=== PATIENT | female | born 1980 | race Caucasian/White ===

== ENCOUNTER → 2018-06-08 | Day surgery (SDC) | payer OTHER ==
[~2018-06-08] MED LIST: DEXAMETHASONE SOD PHOS INJ 4 MG/ML VIAL ONE; DIAZEPAM5 MG PO; FENTANYL CITRATE/PF 100MCG/2 ML INJ ONE; FLUOXETINE HCL40 MG PO; IBUPROFEN200 MG PO; IOPAMIDOL 610MG/1ML 300 MG/ML VIAL IV ONE; KETOROLAC TROMETHAMINE 30 MG/ML VIAL ONE; LEVAQUIN500 MG PO; LEVOFLOXACIN 500MG/D5W 100ML 100 ML IV ONE; LIDOCAINE HCL 2% LOCAL INJ 5 ML SDV VIAL INJ ONE; MIDAZOLAM HCL 2 MG/2 ML VIAL ONE; MORPHINE SULFATE INJ 4 MG/ML INJ 1ML ONE; ONDANSETRON HCL INJ 2MG/ML 2ML 2 MG/ML VIAL ONE; PROPOFOL IV EMULSION 10 MG/ML 20 ML VIAL ONE; PYRIDIUM200 MG PO; SEVOFLURANE INHAL SOLN 250 ML PEN BTL ONE; TYLENOL WITH C1 EACH PO
[2018-06-08 12:45] VITALS: BP 122/73
--- NOTE | 2018-06-08 13:17 | Operative Report ---
DATE OF PROCEDURE: 06/08/2018 SURGEON: Mike Mooney MD PREOPERATIVE DIAGNOSES: 1. Recurrent urinary tract infections. 2. Chronic cystitis. 3. Overactive bladder with urge incontinence. 4. Stress incontinence. POSTOPERATIVE DIAGNOSES: 1. Recurrent urinary tract infections. 2. Chronic cystitis. 3. Overactive bladder with urge incontinence. 4. Stress incontinence. OPERATIONS: Cystourethroscopy and bilateral retrograde pyelogram. SHEET SORTER: SHARI Guzman. ANESTHETIC: General. DESCRIPTION OF PROCEDURE: Ms. Clifton is a 38-year-old female, who presented with a chief complaint of recurrent urinary tract infections and hematuria. She also tells me that she has a history of recurrent kidney stones. She also complained of urgency with urge incontinence and stress incontinence. Physical exam showed cystocele with stress incontinence. CT scan was performed and did not show any evidence of stones, masses, or any abnormal lesions. This patient was placed on the table in the lithotomy position and was prepped and draped in a sterile manner after satisfactory anesthesia. A #23-Divehi cystoscope was used and cystourethroscopy was performed and the urethra was normal. Cystoscopy was then performed using both the right angle and the foroblique lens, and it was noted that the trigone showed marked trigonitis with cobblestone appearance. The bladder neck showed inflammatory bladder neck polyps. The remainder part of the bladder was normal. There was no evidence of stones or masses or lesions or any papillary lesions. Right retrograde pyelogram was then performed using #8 ball-tip. Ureteral catheter inserted at the right ureteral orifice. A 5 mL of contrast material was injected. A retrograde performed was normal. Left retrograde pyelogram was performed similarly and was normal. The bladder was drained. Cystoscope removed and patient taken to the recovery room in satisfactory condition. Plans for this lady are to be placed on Cipro 250 mg one twice a day for two weeks, then one every night for six weeks. Ditropan 5 mg tablet one twice a day. Ultracet tablet one every 6 to 8 hours p.r.n. and was given 20. She is to return to the office in about 2 to 3 weeks when at that time, plans will be made for a mid urethral sling. Mike Mooney MD MA/HAILE /[id number]
--- OUTSIDE RECORDS SUMMARY | 2018-06-13 15:53 | XMS REPORT | Clinical Summary ---
Author Author [facility] Organization [facility] Address Unknown Phone Unavailable Care Team Providers Care Pipeline Gang Supervisor Name Role Phone Samira Kelley MD PCP Allergies Not on File Medications Not on file Active Problems Not on file Encounters Care Team Description Date Type Specialty Iban Ely MD Gastric reflux 04/29/2018 Hospital Radiology Encounter Iban lEy MD Gastric reflux (Primary Dx) 04/28/2018 Transcribe Access Orders after 06/12/2017 Social History Date Tobacco Use Types Packs/Day Years Used Never Assessed Sex Assigned at Date Recorded Not on file Industry Job Start Date Occupation Not on file Not on file Not on file Travel End Travel History Travel Start No recent travel history available. Last Filed Vital Signs Not on file Plan of Treatment Care Team Description Date Type Specialty Amy Tenorio MD [address] [place] [id number] [phone] 07/05/2018 Office Visit Urology Health Maintenance Due Date Last Done Comments CERVICAL CANCER SCREENING 2000 INFLUENZA VACCINE 10/06/2018 Procedures Comments Procedure Name Priority Date/Time Associated Diagnosis FL MODIFIED BARIUM Routine 04/29/2018 Gastric reflux SWALLOW 2:10 PM HAT LINING BLOCKER after 06/12/2017 Results * FL Modified Barium Swallow (04/29/2018 2:10 PM HAT LINING BLOCKER) Narrative Performed At EXAMINATION:[place] MODIFIED BARIUM SWALLOW [facility] CLINICAL HISTORY:K21.9 Gastro-esophageal reflux disease without esophagitis, gastric reflux COMPARISON:None. FINDINGS: The patient swallowed varying consistencies of barium under direct lateral fluoroscopic evaluation. The study was performed in conjunction with speech pathology. IMPRESSION: Normal study. The patient swallowed each consistency without evidence of laryngeal penetration or aspiration. The patient swallowed the barium tablet . Please refer to Speech Pathology report for further details. Fluoroscopy time:1.3 minutes number of fluoroscopic images obtained: 1 Total Dose2.5mGy [id number] Procedure Note Hm Interface, Radiology Results Incoming - 04/29/2018 2:45 PM HAT LINING BLOCK[facility] EXAMINATION: FL MODIFIED BARIUM SWALLOW CLINICAL HISTORY: K21.9 Gastro-esophageal reflux disease without esophagitis, gastric reflux COMPARISON: None. FINDINGS: The patient swallowed varying consistencies of barium under direct lateral fluoroscopic evaluation. The study was performed in conjunction with speech pathology. IMPRESSION: Normal study. The patient swallowed each consistency without evidence of laryngeal penetration or aspiration. The patient swallowed the barium tablet . Please refer to Speech Pathology report for further details. Fluoroscopy time: 1.3 minutes number of fluoroscopic images obtained: 1 Total Dose 2.5 mGy [id number] Performing Organization Address City/State/[facility] Phone Number [facility] [address] [place] [address] after 06/12/2017 Insurance Payer Benefit Subscriber ID Type Phone Address Plan / Group AETNA AETNA xxxxxxxxxx HMO HMO,POS,EP O, MC/EC Advance Directives Patient has advance care planning documents on file. For more information, rebecca cottrell contact: Kiran Joe [address] [place] [address]
--- OUTSIDE RECORDS SUMMARY | 2018-06-13 15:54 | XMS REPORT | Encounter Summary ---
Author Organization Unknown Address [address] [place] [address] Phone [phone] Reason for Visit Medical Complaint Instructions 1. Acute sinusitis sinusitis: care instructions Augmentin 875 mg-125 mg tablet Bromfed DM 2 mg-30 mg-10 mg/5 mL syrup Medrol (Lencho) 4 mg tablets in a dose pack 2. Immunization due Discussion Note: None recorded. Plan of Care Patient Instructions SINUSITIS -Most cases of sinusitis are viral and associated with the common cold. -Approximately 0.5-2% become bacterial although 85-98% of patients are prescribed an antibiotic. Viral- resolves spontaneously in 10days Bacterial- -40-69% resolve spontaneously -symptoms of persist for 10 or more days without clinical improvement -onset of fever (102 degree Fahrenheit), purulent nasal discharge, or facial pain, lasting 3 consecutive days at the beginning of illness Treatment: 1. rest, fluid, and hydration -apply warm compress to face -wash hands frequently -elevate head of bed 2. analgesics Tylenol/ibuprofen 3. -may use nettipot/sinus rinses as needed as this will help rinse out your sinuses 4. take oral steriod as prescribed 5: runny nose -take over the counter antihistamine such as claritin, zyrtec, george, benadryl -sleep with head of bed elevated 6. continue taking cough medication; if cough and congestion worsens and or disrupts sleep, then take bromfed as prescribed but remember this medicaiton can make you sleepy 7. Antibiotic ONLY when infection is bacterial and has persisted for 10 or more days 8. REFERRAL: to primary care provider if high persistent fever, orbital edema, severe headache, visual disturbance, altered mental status, or meningeal signs BROMFED Purpose: for relief of cough and upper respiratory symptoms, including nasal congested associated with allergy or the common cold Side effects: Drowsiness, dizziness, headache, blurred vision, upset stomach, nausea, constipation, or dry mouth/nose/throat may occur. To relieve dry mouth, suck on (sugarless) hard candy or ice chips, chew (sugarless) gum, drink water, or use a saliva substitute. This medication can dry up and thicken mucus in your lungs, making it more difficult to breathe and clear your lungs. To help prevent this effect, drink plenty of fluids unless otherwise directed by your doctor. If your doctor has prescribed this medication, remember that he or she has judged that the benefit to you is greater than the risk of side effects. Many people using this medication do not have serious side effects. Reminders Provider Appointments None recorded. Lab None recorded. Referral None recorded. Procedures None recorded. Surgeries None recorded. Imaging None recorded. Medications Name Start Date Augmentin 875 mg-125 mg tablet Take 1 tablet every 12 hours by oral route for 7 days. Bromfed DM 2 mg-30 mg-10 mg/5 mL syrup Take 10 mL every 4 hours by oral route as needed. Medrol (Lencho) 4 mg tablets in a dose pack take as directed Medications Administered None recorded. Vitals Height Weight BMI Blood Pressure 5 ft 2 in 132 lbs 24.1 kg/m2 118/78 mm[Hg] Lab Results None recorded. Allergies Code Code System Name Reaction Severity Status Onset NKDA Problems No Known Problems Procedures None recorded. Vaccine List None recorded. Social History Smoking Status Former Smoker Past Encounters 11/14/2017 Acute Sinusitis; [facility] [address] [address], Ph. History of Present Illness Ilyci-Zvkwdykxgm-Cndgqnc Reported By: Patient HPI: Location: head/sinuses. Quality: productive cough, nasal/sinus congestion. Duration: 14days. Severity: moderate. Onset/Timing: gradual. Context: no sick contacts, no foreign travel, non-smoker. Modifying factors: OTC medication. Associated Symptoms: no shortness of breath, no wheezing, no change in number of pillows needed to sleep at night, no sweats, no significant weight gain, no significant weight loss, no morning cough, no sore throat, no vomiting, no diarrhea, no rash, no nausea, no fever, no muscle aches, yellow sputum, headache Review of Systems Basic Reported By: Patient Constitutional: Constitutional: no fever Eyes: Eyes: no eye complaints Nqlo-Lkih-Sazdc-Throat: Ears: no ear complaints Skin: Skin: no abnormal / changing mole, no jaundice, no rashes Neurologic: Neurologic: no loss of consciousness, no weakness, no numbness, no seizures, no dizziness, no headaches, headache Physical Exam Adult Basic, Adult Female Complete Reported By: Patient Constitutional: General Appearance: healthy-appearing, well-nourished, well-developed. Level of Distress: NAD. Ambulation: ambulating normally Psychiatric: Mental Status: active and alert. Orientation: to time, to place, to person Lul-Ejlr-Qkzne-Throat: Ears: no lesions on external ear, no outer ear tenderness, EACs clear, TMs clear. Hearing: no hearing loss. Nose: no lesions on external nose, nares patent, no septal deviation, nasal passages clear, sinus tenderness, nasal discharge--rhinorrhea, post nasal drip. Lips, Teeth, and Gums: no mouth or lip ulcers, no bleeding gums, normal dentition. Oropharynx: moist mucous membranes, no erythema, no exudates, tonsils not enlarged Neck: Lymph Nodes: no cervical LAD, no supraclavicular LAD, no axillary LAD, no inguinal LAD Lungs: Respiratory effort: no dyspnea, no tachypnea, no use of accessory muscles, no intercostal retractions Cardiovascular: Heart Auscultation: RRR, no murmurs Musculoskeletal:: Motor Strength and Tone: normal motor strength, normal tone Neurologic: Gait and Station: normal gait, normal station Skin: Inspection and palpation: no rash, no lesions, no ulcer, no abnormal nevi, no induration, no nodules, good turgor, no jaundice
--- OUTSIDE RECORDS SUMMARY | 2018-06-13 15:54 | XMS REPORT | Encounter Summary ---
Author Organization Unknown Address [address] [place] [address] Phone [phone] Reason for Visit Medical Complaint Instructions 1. [...] Encounters 11/14/2017 Acute [facility]itis; [facility] [address] [phone], Ph. History of Present Illness Omjhq-Misaluwhjl-Ibacspd Reported By: Patient HPI: Location: head/sinuses. Quality: [...] no fever Eyes: Eyes: no eye complaints Ciqa-Tpnc-Qwvro-Throat: Ears: no ear complaints Skin: Skin: no [...] Orientation: to time, to place, to person Bug-Iakz-Sdodv-Throat: Ears: no lesions on external ear, no [...]
--- OUTSIDE RECORDS SUMMARY | 2018-06-13 15:54 | XMS REPORT | Continuity of Care Document ---
Author Author [facility] Interface Address Unknown Phone Unavailable Problems Problem Status Onset Date Classification Date Reported Comments Source Acute sinusitis 11/14/2017 Diagnosis 11/14/2017 [facility] Immunization due 11/14/2017 Diagnosis 11/14/2017 [facility] BREAST AUG 11/28 DS Active 11/23/2012 [facility] UNABLE TO USE LEGS AND ARM Active 07/16/2012 [facility] BACK PAIN Active 07/12/2012 [facility] HEAD PAIN Active 07/01/2012 [facility] PAIN UNDER RIB CAGE IN BACK Active 05/29/2012 [facility] ABD PAIN/BACK PAIN Active 05/24/2012 [facility] Renal calculus Resolved Problem 11/30/2012 [facility] Tubal ligation Resolved Problem 11/30/2012 [facility] Medications Medication Details Route Status Patient Instructions Ordering Provider Order Date Source [place] 10/325 oral tablet 1 tab, Route: PO, Dosing Weight 52.273, kg, ONCE, Start date: 11/28/12 9:11:00, Stop date: 11/28/12 9:11:00 PO No Longer Active [facility] 11/28/2012 [facility] metoprolol 1 mg, Route: IVP, Q5Min, Dosing Weight 52.273, kg, PRN Elevated BP, Start date: 11/28/12 8:16:00, Duration: 5 doses or times, Stop date: Limited # of times IVP No Longer Active [facility] 11/28/2012 [facility] hydromorphone 0.5 mg, Route: IVP, Q5Min, Dosing Weight 52.273, kg, PRN Pain Score 7-10, Start date: 11/28/12 8:16:00, Duration: 5 doses or times, Stop date: Limited # of times IVP No Longer Active [place] 11/28/2012 [facility] fentanyl 25 microgram, Route: IVP, Q5Min, Dosing Weight 52.273, kg, PRN Pain Score 4-6, Start date: 11/28/12 8:16:00, Duration: 4 doses or times, Stop date: Limited # of times IVP No Longer Active [facility] 11/28/2012 [facility] ibuprofen 600 mg, Route: PO, Drug form: TAB, Q6H, Dosing Weight 52.273, kg, PRN Pain Score 1-3, Start date: 11/28/12 8:16:00, Duration: 30 day, Stop date: 12/28/12 8:15:00 PO No Longer Active [facility] 11/28/2012 [facility] morphine Sulfate 2 mg, Route: IVP, Q5Min, Dosing Weight 52.273, kg, PRN Pain Score 4-6, Start date: 11/28/12 8:16:00, Duration: 5 doses or times, Stop date: Limited # of times IVP No Longer Active [facility] 11/28/2012 [facility] ketorolac 30 mg, Route: IVP, ONCE, Dosing Weight 52.273, kg, Start date: 11/28/12 8:16:00, Duration: 1 doses or times, Stop date: 11/28/12 8:16:00 IVP No Longer Active [facility] 11/28/2012 [facility] flumazenil 0.2 mg, Route: IVP, PRN, Dosing Weight 52.273, kg, PRN Benzodiazepine Reversal, Initial dose, Start date: 11/28/12 8:16:00, Duration: 30 day, Stop date: 12/28/12 8:15:00 IVP No Longer Active [facility] 11/28/2012 [facility] ondansetron 4 mg, Route: IVP, ONCE, Dosing Weight 52.273, kg, PRN Nausea & Vomiting, Start date: 11/28/12 8:16:00 IVP No Longer Active [facility] 11/28/2012 [facility] naloxone 0.04 mg, Route: IVP, Q2MIN, Dosing Weight 52.273, kg, PRN Narcotic Reversal, Start date: 11/28/12 8:16:00, Duration: 8 doses or times, Stop date: Limited # of times IVP No Longer Active [facility] 11/28/2012 [facility] hydrALAZINE 5 mg, Route: IVP, Q5Min, Dosing Weight 52.273, kg, PRN Elevated BP, Start date: 11/28/12 8:16:00, Duration: 4 doses or times, Stop date: Limited # of times IVP No Longer Active [place] 11/28/2012 [facility] DepoMedrol 80 mg, Route: IM, ONCE, Dosing Weight 52.273, kg, Start date: 11/28/12 8:02:00, Stop date: 11/28/12 8:02:00 IM No Longer Active [facility] 11/28/2012 [facility] dexamethasone 8 mg, Route: IV, ONCE, Dosing Weight 52.273, kg, Start date: 11/28/12 7:07:00, Stop date: 11/28/12 7:07:00 IV No Longer Active [facility] 11/28/2012 [facility] Ancef 1 gm, Route: IVPB, ONCE, Dosing Weight 52.273, kg, Start date: 11/28/12 7:07:00, Stop date: 11/28/12 7:07:00 IVPB No Longer Active [facility] 11/28/2012 [facility] Lactated Ringers Injection IV 1,000 mL 1,000 mL, Rate: 25 ml/hr, Infuse over: 40 hr, Route: IV, Dosing Weight 52.273 kg, Total Volume: 1,000, Start date: 11/28/12 6:17:00, Duration: 30 day, Stop date: 12/28/12 6:16:00 IV No Longer Active [facility] 11/28/2012 [facility] Multiple Vitamins oral tablet 1 tab, PO, Daily, 30 tab, Substitution Allowed, Maintenance, TAB PO Active 11/24/2012 [facility] Geodon 20 mg oral capsule 20 mg, 1 cap, PO, BID, 60 cap, Substitution Allowed, CAP PO Active [facility]07/16/2012 [facility] Ativan 1 mg oral tablet 1 mg, 1 tab, PO, Q6H, PRN, 12 tab, Anxiety, Substitution Allowed PO Active [facility] 07/16/2012 [facility] predniSONE 50 mg oral tablet 50 mg, 1 tab, PO, Daily, 7 tab, Substitution Allowed, TAB PO Active [facility]07/16/2012 [facility] Percocet 5/325 oral tablet Substitution Allowed, Maintenance Active 07/16/2012 [facility] meloxicam Substitution Allowed Active 07/16/2012 [facility] Flexeril Substitution Allowed Active 07/16/2012 [facility] Geodon 20 mg, Route: IM, ONCE, Dosing Weight 57.273, kg, Priority: STAT, Start date: 07/16/12 10:29:00, Stop date: 07/16/12 10:29:00 IM No Longer Active [facility] 07/16/2012 [facility] Ativan 2 mg, Route: IVP, ONCE, Dosing Weight 57.273, kg, Priority: STAT, Start date: 07/16/12 10:29:00, Stop date: 07/16/12 10:29:00 IVP No Longer Active [facility] 07/16/2012 [facility] dexamethasone 10 mg, Route: IVP, ONCE, Dosing Weight 57.273, kg, Priority: STAT, Start date: 07/16/12 10:29:00, Stop date: 07/16/12 10:29:00 IVP No Longer Active [facility] 07/16/2012 [facility] Ativan 1 mg oral tablet 1 mg, 1 tab, PO, Q6H, PRN, 12 tab, Anxiety, Substitution Allowed PO Active [facility] 07/12/2012 [facility] predniSONE 50 mg oral tablet 50 mg, 1 tab, PO, Daily, 7 tab, Substitution Allowed, TAB PO Active [facility] 07/12/2012 [facility] dexamethasone 10 mg, Route: IVP, ONCE, Dosing Weight 57.273, kg, Priority: STAT, Start date: 07/12/12 10:45:00, Stop date: 07/12/12 10:45:00 IVP No Longer Active [facility] 07/12/2012 [facility] Sodium Chloride 0.9% IV 25 mL, Route: IV, Start date: 07/12/12 10:23:00, Duration: 30 day, Stop date: 08/11/12 10:22:00, PRN Line Flush IV No Longer Active [facility] 07/12/2012 [facility] BD Normal Saline Flush 10 mL, Route: IV, Drug Form: INJ, PRN, PRN Line Flush, Start date: 07/12/12 10:23:00, Duration: 30 day, Stop date: 08/11/12 10:22:00 IV No Longer Active [facility] 07/12/2012 [facility] dexamethasone 10 mg, 1 mL, Route: IVP, Drug form: INJ, ONCE, Dosing Weight 57.273, kg, Priority: STAT, Start date: 07/12/12 10:18:00, Stop date: 07/12/12 10:18:00 IVP No Longer Active [facility] 07/12/2012 [facility] Ativan 2 mg, 1 mL, Route: IVP, Drug form: INJ, ONCE, Dosing Weight 57.273, kg, Priority: STAT, Start date: 07/12/12 10:18:00, Stop date: 07/12/12 10:18:00 IVP No Longer Active [facility] 07/12/2012 [facility] Motrin 600 mg oral tablet 600 mg, 1 tab, PO, Q6H, PRN, take with food, 30 tab, Pain, Substitution Allowedtake with food PO Active [place] 07/01/2012 [facility] Sodium Chloride 0.9% IV 25 mL, Route: IV, Start date: 07/01/12 12:41:00, Duration: 30 day, Stop date: 07/31/12 12:40:00, PRN Line Flush IV No Longer Active [place] 07/01/2012 [facility] BD Normal Saline Flush 10 mL, Route: IV, Drug Form: INJ, PRN, PRN Line Flush, Start date: 07/01/12 12:41:00, Duration: 30 day, Stop date: 07/31/12 12:40:00 IV No Longer Active [place] 07/01/2012 [facility] Benadryl 50 mg, 1 mL, Route: IVP, Drug form: INJ, ONCE, Dosing Weight 57.273, kg, Priority: STAT, Start date: 07/01/12 12:38:00, Stop date: 07/01/12 12:38:00 IVP No Longer Active [place] 07/01/2012 [facility] Reglan 10 mg, 2 mL, Route: IVP, Drug form: INJ, ONCE, Dosing Weight 57.273, kg, Priority: STAT, Start date: 07/01/12 12:38:00, Stop date: 07/01/12 12:38:00 IVP No Longer Active [place] 07/01/2012 [facility] Sodium Chloride 0.9% (Bolus) IV 1,000 mL 1,000 mL, Rate: 1,000 ml/hr, Infuse over: 1 hr, Route: IV, kg, Total Volume: 1,000, Priority: STAT, Start date: 07/01/12 12:37:00, Duration: 1 doses or times, Stop date: 07/01/12 13:36:00, Bolus DoseBolus Dose IV No Longer Active [place] 07/01/2012 [facility] Klonopin Substitution Allowed Active 07/01/2012 [facility] Zoloft Substitution Allowed Active 07/01/2012 [facility] Zofran ODT 4 mg oral tablet, disintegrating 4 mg, 1 tab, PO, BID, PRN, Dissolve tab under tongue, 10 tab, Nausea and Vomiting, Substitution AllowedDissolve tab under tongue PO Active [facility] 05/29/2012 [facility] Naprosyn 375 mg oral tablet 375 mg, 1 tab, PO, BID, PRN, 20 tab, Pain, Substitution Allowed PO Active [facility] 05/29/2012 [facility] [place] 5/325 oral tablet 1-2 tab, PO, Q4-6H, PRN, 15 tab, Pain, Substitution Allowed, Maintenance PO Active [facility] 05/29/2012 [facility] Pyridium 100 mg oral tablet 100 mg, 1 tab, PO, TID, 21 tab, Substitution Allowed, TAB PO Active [facility] 05/29/2012 [facility] Sodium Chloride 0.9% IV 25 mL, Route: IV, Start date: 05/29/12 13:13:00, Duration: 30 day, Stop date: 06/28/12 13:12:00, PRN Line Flush IV No Longer Active [facility] 05/29/2012 [facility] BD Normal Saline Flush 10 mL, Route: IV, Drug Form: INJ, PRN, PRN Line Flush, Start date: 05/29/12 13:12:00, Duration: 30 day, Stop date: 06/28/12 13:11:[address] [facility] 05/29/2012 [facility] ketorolac 30 mg, 1 mL, Route: IVP, Drug form: INJ, ONCE, Dosing Weight 59.091, kg, Priority: STAT, Start date: 05/29/12 13:11:00, Stop date: 05/29/12 13:11:00 IVP No Longer Active [facility] 05/29/2012 [facility] Robaxin 500 mg oral tablet 500 mg, 1 tab, PO, QID, 12 tab, Substitution Allowed, TAB PO Active [place] 05/24/2012 [facility] tramadol 50 mg oral tablet 1 - 2 tab, PO, Q6H, PRN, 16 tab, Pain, Substitution Allowed PO Active [place] 05/24/2012 [facility] Sodium Chloride 0.9% IV 25 mL, Route: IV, Start date: 05/24/12 16:34:00, Duration: 30 day, Stop date: 06/23/12 16:33:00, PRN Line Flush IV No Longer Active [place] 05/24/2012 [facility] BD Normal Saline Flush 10 mL, Route: IV, Drug Form: INJ, PRN, PRN Line Flush, Start date: 05/24/12 16:33:00, Duration: 30 day, Stop date: 06/23/12 16:32:00 IV No Longer Active [place] 05/24/2012 [facility] morphine Sulfate 2 mg, 1 mL, Route: IVP, Drug form: INJ, ONCE, Dosing Weight 61.364, kg, Priority: STAT, Start date: 05/24/12 16:32:00, Stop date: 05/24/12 16:32:00 IVP No Longer Active [place] 05/24/2012 [facility] ondansetron 4 mg, 2 mL, Route: IVP, Drug form: INJ, ONCE, Dosing Weight 61.364, kg, Priority: STAT, Start date: 05/24/12 16:32:00, Stop date: 05/24/12 16:32:00 IVP No Longer Active [place] 05/24/2012 [facility] Sodium Chloride 0.9% (Bolus) IV 1,000 mL 1,000 mL, Rate: 1,000 ml/hr, Infuse over: 1 hr, Route: IV, kg, Total Volume: 1,000, Priority: STAT, Start date: 05/24/12 16:32:00, Duration: 1 doses or times, Stop date: 05/24/12 17:31:00 IV No Longer Active [place] 05/24/2012 [facility] Saline Flush 0.9% 5 ml, Route: IVP, Dosing Weight 61.364, kg, PRN, PRN Line Flush, Start date: 05/24/12 16:32:00, Duration: 30 day, Stop date: 06/23/12 16:31:00 IVP No Longer Active [place] 05/24/2012 [facility] Amoxicillin 875 MG / Clavulanate 125 MG Oral Tablet [Augmentin] Augmentin 875 mg-125 mg tablet Take 1 tablet every 12 hours by oral route for 7 days. Active [facility] Brompheniramine Maleate 0.4 MG/ML / Dextromethorphan Hydrobromide 2 MG/ML / Pseudoephedrine Hydrochloride 6 MG/ML Oral Solution [Bromfed DM] Bromfed DM 2 mg-30 mg-10 mg/5 mL syrup Take 10 mL every 4 hours by oral route as needed. Active [facility] Medrol (Lencho) 4 mg tablets in a dose pack Medrol (Lencho) 4 mg tablets in a dose pack take as directed Active [facility] Allergies, Adverse Reactions, Alerts Substance Category Reaction Severity Reaction type Status Date Reported Comments Source morphine propensity to adverse reactions to substance headache Adverse Reaction Active [facility] Immunizations Immunization Date Given Site Status Last Updated Comments Source Results Order Name Results Value Reference Range Date Interpretation Comments Source CHEMISTRY U Preg Negative (11/28/2012 05:30:00) Negative 11/28/2012 Normal [facility] CHEMISTRY S Preg Negative *NA* (07/16/2012 10:40:00) Negative 07/16/2012 NA [facility] CHEMISTRY AGAP 11.9 meq/L 10.0 - 20.0 07/16/2012 Normal [facility] CHEMISTRY B/C Ratio 6 6 - 25 07/16/2012 Normal [facility] CHEMISTRY A/G Ratio 1.5 0.7 - 1.6 07/16/2012 Normal [facility] CHEMISTRY Globulin 2.8 g/dL 2.0 - 4.0 07/16/2012 Normal [facility] CHEMISTRY Chloride Lvl 107 meq/L 95 - 109 07/16/2012 Normal [facility] CHEMISTRY Potassium Lvl 3.9 meq/L 3.5 - 5.1 07/16/2012 Normal [facility] CHEMISTRY Calcium Lvl 9.1 mg/dL 8.5 - 10.5 07/16/2012 Normal [facility] CHEMISTRY CO2 26 meq/L 24 - 32 07/16/2012 Normal [facility] CHEMISTRY Glucose Lvl 90 mg/dL 70 - 99 07/16/2012 Normal 2Interpretive Data: Adult reference range values reflect the clinical guidelines of the [place] [employer]. [facility] CHEMISTRY BUN 5 mg/dL 7 - 22 07/16/2012 LOW [facility] CHEMISTRY Albumin Lvl 4.1 g/dL 3.5 - 5.0 07/16/2012 Normal [facility] CHEMISTRY Sodium Lvl 141 meq/L 135 - 145 07/16/2012 Normal [facility] CHEMISTRY Creatinine Lvl 0.8 mg/dL 0.5 - 1.4 07/16/2012 Normal [facility] CHEMISTRY eGFR 97 mL/min/1.73m2 07/16/2012 NA 1Result Comment: The eGFR is calculated using the CKD-EPI formula. In most young, healthy individuals the eGFR will be >90 mL/min/1.73m2. The eGFR declines with age. An eGFR of 60-89 may be normal in some populations, particularly the elderly, for whom the CKD-EPI formula has not been extensively validated. Use of the eGFR is not recommended in the following populations: Individuals with unstable creatinine concentrations, including patients and those with serious co-morbid conditions. Patients with extremes in muscle mass or diet. The data above are obtained from the National Kidney Disease Education Program (NKDEP) which additionally recommends that when the eGFR is used in patients with extremes of body mass index for purposes of drug dosing, the eGFR should be multiplied by the estimated BMI. [facility] CHEMISTRY Total Protein 6.9 g/dL 6.4 - 8.4 07/16/2012 Normal [facility] CHEMISTRY Bili Total 0.3 mg/dL 0.2 - 1.3 07/16/2012 Normal [facility] CHEMISTRY ALT 15 unit/L 0 - 65 07/16/2012 Normal [facility] CHEMISTRY Alk Phos 57 unit/L 39 - 136 07/16/2012 Normal [facility] CHEMISTRY AST 9 unit/L 0 - 37 07/16/2012 Normal [facility] HEMATOLOGY Platelet 196 K/CMM 133 - 450 07/16/2012 Normal [facility] HEMATOLOGY MCHC 33.4 g/dL 32.0 - 36.0 07/16/2012 Normal [facility] HEMATOLOGY MCH 32.1 pg 27.0 - 31.0 07/16/2012 [facility] HEMATOLOGY RDW 14.6 % 11.5 - 14.5 07/16/2012 [facility] HEMATOLOGY Hct 44.6 % 36.0 - 48.0 07/16/2012 Normal [facility] HEMATOLOGY MCV 96.1 fL 81.0 - 99.0 07/16/2012 Normal [facility] HEMATOLOGY MPV 8.1 fL 7.4 - 10.4 07/16/2012 Normal [facility] HEMATOLOGY Hgb 14.9 g/dL 12.0 - 16.0 07/16/2012 Normal [facility] HEMATOLOGY RBC 4.64 M/CMM 4.20 - 5.40 07/16/2012 Normal [facility] HEMATOLOGY WBC 6.0 K/CMM 3.7 - 10.4 07/16/2012 Normal [facility] HEMATOLOGY Basophils 0.4 % 0.0 - 1.0 07/16/2012 Normal [facility] HEMATOLOGY Basophils # 0.0 K/CMM 0.0 - 0.2 07/16/2012 Normal [facility] HEMATOLOGY Eosinophils # 0.1 K/CMM 0.0 - 0.5 07/16/2012 Normal [facility] HEMATOLOGY Segs-Bands # 3.9 K/CMM 1.5 - 8.1 07/16/2012 Normal [facility] HEMATOLOGY Monocytes # 0.2 K/CMM 0.0 - 0.8 07/16/2012 Normal [facility] HEMATOLOGY Lymphocytes # 1.7 K/CMM 1.0 - 5.5 07/16/2012 Normal [facility] HEMATOLOGY Eosinophils 1.9 % 0.0 - 4.0 07/16/2012 Normal [facility] HEMATOLOGY Monocytes 3.9 % 2.0 - 12.0 07/16/2012 Normal [facility] HEMATOLOGY Segs 65.2 % 45.0 - 75.0 07/16/2012 Normal [facility] HEMATOLOGY Lymphocytes 28.6 % 20.0 - 40.0 07/16/2012 Normal [facility] Spine cervical wo contrast CT Spine cervical wo contrast CT HISTORY: Pain and radiculopathy. Comparison is made to previous cervical spine radiographs 07/01/2012. Axial CT imaging through the cervical spine from the skullbase to the apices was performed including coronal and sagittal reconstructions. The cervical vertebral body heights are maintained. No acute displaced fracture or subluxation is observed. The spinal canal is maintained at all levels. The neural foramina are patent. No prevertebral soft tissue swelling is identified. IMPRESSION: No acute trauma observed. 07/16/2012 - - Read by: Parth Bazzi Dictated Date/time: 07/16/12 11:44 Electronically Signed by: Parth Bazzi MD 07/16/12 11:46 FINAL REPORT [facility] Spine lumbar wo contrast CT Spine lumbar wo contrast CT HISTORY: Pain and radiculopathy. Thin section axial CT imaging through the lumbosacral spine from T12 through S1 was performed including multiplanar reconstructions. The lumbar vertebral body heights are maintained. No acute displaced fracture is identified. There is a grade 1 spondylolisthesis of L5 on S1 with bilateral pars intraarticularis defects. Small annular disc bulges are suspected at L4-L5 and L5-S1. No prevertebral soft tissue swelling is identified. IMPRESSION: Degenerative change as described. 07/16/2012 - - Read by: Parth Bazzi Dictated Date/time: 07/16/12 11:46 Electronically Signed by: Parth Bazzi MD 07/16/12 11:48 FINAL REPORT [facility] CHEMISTRY S Preg Negative *NA* (07/01/2012 12:40:00) Negative 07/01/2012 NA [facility] CHEMISTRY A/G Ratio 1.5 0.7 - 1.6 07/01/2012 Normal [facility] CHEMISTRY AGAP 11.6 meq/L 10.0 - 20.0 07/01/2012 Normal [facility] CHEMISTRY Globulin 2.8 g/dL 2.0 - 4.0 07/01/2012 Normal [facility] CHEMISTRY B/C Ratio 7 6 - 25 07/01/2012 Normal [facility] CHEMISTRY eGFR 114 mL/min/1.73m2 07/01/2012 NA 1Result Comment: The eGFR is calculated using the CKD-EPI formula. In most young, healthy individuals the eGFR will be >90 mL/min/1.73m2. The eGFR declines with age. An eGFR of 60-89 may be normal in some populations, particularly the elderly, for whom the CKD-EPI formula has not been extensively validated. Use of the eGFR is not recommended in the following populations: Individuals with unstable creatinine concentrations, including patients and those with serious co-morbid conditions. Patients with extremes in muscle mass or diet. The data above are obtained from the National Kidney Disease Education Program (NKDEP) which additionally recommends that when the eGFR is used in patients with extremes of body mass index for purposes of drug dosing, the eGFR should be multiplied by the estimated BMI. [facility] CHEMISTRY ALT 16 unit/L 0 - 65 07/01/2012 Normal [facility] CHEMISTRY Albumin Lvl 4.1 g/dL 3.5 - 5.0 07/01/2012 Normal [facility] CHEMISTRY Alk Phos 62 unit/L 39 - 136 07/01/2012 Normal [facility] CHEMISTRY Bili Total 0.6 mg/dL 0.2 - 1.3 07/01/2012 Normal [facility] CHEMISTRY AST 13 unit/L 0 - 37 07/01/2012 Normal [facility] CHEMISTRY Calcium Lvl 8.7 mg/dL 8.5 - 10.5 07/01/2012 Normal [facility] CHEMISTRY CO2 26 meq/L 24 - 32 07/01/2012 Normal [facility] CHEMISTRY Chloride Lvl 98 meq/L 95 - 109 07/01/2012 Normal [facility] CHEMISTRY Total Protein 6.9 g/dL 6.4 - 8.4 07/01/2012 Normal [facility] CHEMISTRY Glucose Lvl 91 mg/dL 70 - 99 07/01/2012 Normal 2Interpretive Data: Adult reference range values reflect the clinical guidelines of the [place] [employer]. [facility] CHEMISTRY Sodium Lvl 132 meq/L 135 - 145 07/01/2012 LOW [facility] CHEMISTRY Creatinine Lvl 0.7 mg/dL 0.5 - 1.4 07/01/2012 Normal [facility] CHEMISTRY Potassium Lvl 3.6 meq/L 3.5 - 5.1 07/01/2012 Normal [facility] CHEMISTRY BUN 5 mg/dL 7 - 22 07/01/2012 LOW [facility] HEMATOLOGY Eosinophils # 0.1 K/CMM 0.0 - 0.5 07/01/2012 Normal [facility] HEMATOLOGY Basophils # 0.0 K/CMM 0.0 - 0.2 07/01/2012 Normal [facility] HEMATOLOGY Monocytes # 0.3 K/CMM 0.0 - 0.8 07/01/2012 Normal [facility] HEMATOLOGY Monocytes 5.2 % 2.0 - 12.0 07/01/2012 Normal [facility] HEMATOLOGY Eosinophils 1.5 % 0.0 - 4.0 07/01/2012 Normal [facility] HEMATOLOGY Basophils 0.7 % 0.0 - 1.0 07/01/2012 Normal [facility] HEMATOLOGY Segs-Bands # 4.1 K/CMM 1.5 - 8.1 07/01/2012 Normal [facility] HEMATOLOGY Lymphocytes # 1.9 K/CMM 1.0 - 5.5 07/01/2012 Normal [facility] HEMATOLOGY Lymphocytes 29.1 % 20.0 - 40.0 07/01/2012 Normal [facility] HEMATOLOGY Segs 63.5 % 45.0 - 75.0 07/01/2012 Normal [facility] HEMATOLOGY INR 1.08 0.85 - 1.17 07/01/2012 Normal 3Interpretive Data: RECOMMENDED RANGES FOR PROTIME INR: 2.0-3.0 for most medical and surgical thromboembolic states. 2.5-3.5 for artificial heart valves and recurrent embolism. INR SHOULD BE USED ONLY FOR PATIENTS ON STABLE ANTICOAGULANT THERAPY. [facility] HEMATOLOGY PT 14.2 s 12.0 - 14.7 07/01/2012 Normal [facility] HEMATOLOGY PTT 33.5 s 22.9 - 35.8 07/01/2012 Normal 4Interpretive Data: Heparin Therapeutic Range: 57 - 92 Seconds [facility] HEMATOLOGY RBC 4.69 M/CMM 4.20 - 5.40 07/01/2012 Normal [facility] HEMATOLOGY Hgb 15.1 g/dL 12.0 - 16.0 07/01/2012 Normal [facility] HEMATOLOGY WBC 6.4 K/CMM 3.7 - 10.4 07/01/2012 Normal [facility] HEMATOLOGY MPV 8.5 fL 7.4 - 10.4 07/01/2012 Normal [facility] HEMATOLOGY Platelet 162 K/CMM 133 - 450 07/01/2012 Normal [facility] HEMATOLOGY RDW 14.1 % 11.5 - 14.5 07/01/2012 Normal [facility] HEMATOLOGY MCH 32.1 pg 27.0 - 31.0 07/01/2012 HI [facility] HEMATOLOGY MCHC 33.8 g/dL 32.0 - 36.0 07/01/2012 Normal [facility] HEMATOLOGY Hct 44.6 % 36.0 - 48.0 07/01/2012 Normal [facility] HEMATOLOGY MCV 95.0 fL 81.0 - 99.0 07/01/2012 Normal [facility] CHEMISTRY eGFR 114 mL/min/1.73m2 05/29/2012 NA 1Result Comment: The eGFR is calculated using the CKD-EPI formula. In most young, healthy individuals the eGFR will be >90 mL/min/1.73m2. The eGFR declines with age. An eGFR of 60-89 may be normal in some populations, particularly the elderly, for whom the CKD-EPI formula has not been extensively validated. Use of the eGFR is not recommended in the following populations: Individuals with unstable creatinine concentrations, including patients and those with serious co-morbid conditions. Patients with extremes in muscle mass or diet. The data above are obtained from the National Kidney Disease Education Program (NKDEP) which additionally recommends that when the eGFR is used in patients with extremes of body mass index for purposes of drug dosing, the eGFR should be multiplied by the estimated BMI. [facility] CHEMISTRY Albumin Lvl 4.2 g/dL 3.5 - 5.0 05/29/2012 Normal [facility] CHEMISTRY CO2 23 meq/L 24 - 32 05/29/2012 LOW [facility] CHEMISTRY Calcium Lvl 9.0 mg/dL 8.5 - 10.5 05/29/2012 Normal [facility] CHEMISTRY Chloride Lvl 107 meq/L 95 - 109 05/29/2012 Normal [facility] CHEMISTRY Potassium Lvl 4.1 meq/L 3.5 - 5.1 05/29/2012 Normal [facility] CHEMISTRY Sodium Lvl 138 meq/L 135 - 145 05/29/2012 Normal [facility] CHEMISTRY Creatinine Lvl 0.7 mg/dL 0.5 - 1.4 05/29/2012 Normal [facility] CHEMISTRY BUN 5 mg/dL 7 - 22 05/29/2012 LOW [facility] CHEMISTRY Glucose Lvl 81 mg/dL 70 - 99 05/29/2012 Normal 2Interpretive Data: Adult reference range values reflect the clinical guidelines of the [place] [employer]. [facility] CHEMISTRY AST 12 unit/L 0 - 37 05/29/2012 Normal [facility] CHEMISTRY Bili Total 0.5 mg/dL 0.2 - 1.3 05/29/2012 Normal [facility] CHEMISTRY Alk Phos 65 unit/L 39 - 136 05/29/2012 Normal [facility] CHEMISTRY Total Protein 7.0 g/dL 6.4 - 8.4 05/29/2012 Normal [facility] CHEMISTRY ALT 15 unit/L 0 - 65 05/29/2012 Normal [facility] CHEMISTRY B/C Ratio 7 6 - 25 05/29/2012 Normal [facility] CHEMISTRY AGAP 12.1 meq/L 10.0 - 20.0 05/29/2012 Normal [facility] CHEMISTRY Globulin 2.8 g/dL 2.0 - 4.0 05/29/2012 Normal [facility] CHEMISTRY A/G Ratio 1.5 0.7 - 1.6 05/29/2012 Normal [facility] HEMATOLOGY Segs 63.6 % 45.0 - 75.0 05/29/2012 Normal [facility] HEMATOLOGY Lymphocytes 27.2 % 20.0 - 40.0 05/29/2012 Normal [facility] HEMATOLOGY Basophils # 0.1 K/CMM 0.0 - 0.2 05/29/2012 Normal [facility] HEMATOLOGY Eosinophils # 0.2 K/CMM 0.0 - 0.5 05/29/2012 Normal [facility] HEMATOLOGY Basophils 1.0 % 0.0 - 1.0 05/29/2012 Normal [facility] HEMATOLOGY Segs-Bands # 5.5 K/CMM 1.5 - 8.1 05/29/2012 Normal [facility] HEMATOLOGY Lymphocytes # 2.4 K/CMM 1.0 - 5.5 05/29/2012 Normal [facility] HEMATOLOGY Monocytes # 0.5 K/CMM 0.0 - 0.8 05/29/2012 Normal [facility] HEMATOLOGY Monocytes 5.4 % 2.0 - 12.0 05/29/2012 Normal [facility] HEMATOLOGY Eosinophils 2.8 % 0.0 - 4.0 05/29/2012 Normal [facility] HEMATOLOGY MPV 8.9 fL 7.4 - 10.4 05/29/2012 Normal [facility] HEMATOLOGY RBC 4.94 M/CMM 4.20 - 5.40 05/29/2012 Normal [facility] HEMATOLOGY MCV 96.2 fL 81.0 - 99.0 05/29/2012 Normal [facility] HEMATOLOGY MCH 31.7 pg 27.0 - 31.0 05/29/2012 HI [facility] HEMATOLOGY MCHC 32.9 g/dL 32.0 - 36.0 05/29/2012 Normal [facility] HEMATOLOGY Hgb 15.6 g/dL 12.0 - 16.0 05/29/2012 Normal [facility] HEMATOLOGY Hct 47.5 % 36.0 - 48.0 05/29/2012 Normal [facility] HEMATOLOGY RDW 14.3 % 11.5 - 14.5 05/29/2012 Normal [facility] HEMATOLOGY Platelet 203 K/CMM 133 - 450 05/29/2012 Normal [facility] HEMATOLOGY WBC 8.7 K/CMM 3.7 - 10.4 05/29/2012 Normal [facility] HEMATOLOGY D-Dimer 0.38 ug/mL FEU 05/29/2012 NA 3Interpretive Data: In DIC, quantitative D- Dimer is generally greater than 0.66 ug/mL FEU. Values of quantitative D-Dimer less than 0.40 ug/mL FEU have been reported to be associated with a low probability of deep vein thrombosis/pulmonary embolism. This test alone should not be used to rule out DVT/PE. [facility] URINALYSIS UA Leuk Est Negative (05/29/2012 12:10:42) Negative 05/29/2012 Normal [facility] URINALYSIS UA Nitrite Negative (05/29/2012 12:10:42) Negative 05/29/2012 Normal [facility] URINALYSIS UA Bili Negative *NA* (05/29/2012 12:10:42) Negative 05/29/2012 NA [facility] URINALYSIS UA Urobilinogen 0.2 EU/dL 0.1 - 1.0 05/29/2012 Normal [facility] URINALYSIS UA Blood Trace *ABN* (05/29/2012 12:10:42) Negative 05/29/2012 ABN [facility] URINALYSIS UA Bacteria Occasional /HPF (05/29/2012 12:10:42) None Seen 05/29/2012 Normal [facility] URINALYSIS UA RBC 0-2 /HPF (05/29/2012 12:10:42) 0 - 2 05/29/2012 Normal [facility] URINALYSIS UA Sq Epi Moderate /LPF *ABN* (05/29/2012 12:10:42) Few 05/29/2012 ABN [facility] URINALYSIS UA WBC 0-2 /HPF (05/29/2012 12:10:42) None Seen 05/29/2012 Normal [facility] URINALYSIS UA Color Yellow *NA* (05/29/2012 12:10:42) Yellow 05/29/2012 NA [facility] URINALYSIS UA Turbidity Clear (05/29/2012 12:10:42) Clear 05/29/2012 Normal [facility] URINALYSIS UA Glucose Negative (05/29/2012 12:10:42) Negative 05/29/2012 Normal [facility] URINALYSIS UA Protein Negative (05/29/2012 12:10:42) Negative 05/29/2012 Normal [facility] URINALYSIS UA Ketones Negative *NA* (05/29/2012 12:10:42) Negative 05/29/2012 NA [facility] URINALYSIS UA Spec Grav 1.010 <=1.030 05/29/2012 Normal [facility] URINALYSIS UA pH 7.0 5.0 - 8.0 05/29/2012 Normal [facility] IMMUNOLOGY Chlam PCR Negative (05/24/2012 17:00:00) Negative 05/24/2012 Normal [facility] IMMUNOLOGY Source Chlam endocervix 05/24/2012 NA [facility] IMMUNOLOGY Source Gurvinder Endocervix 05/24/2012 NA [facility] IMMUNOLOGY Gonorrhea PCR Negative (05/24/2012 17:00:00) Negative 05/24/2012 Normal [facility] Microbiology Wet Prep 05/24/2012 [facility] IMMUNOLOGY CDC-HIV 1/2 Ab Negative *NA* (05/24/2012 16:40:39) Negative 05/24/2012 [facility] CHEMISTRY U Preg Negative (05/24/2012 16:40:00) Negative 05/24/2012 Normal [facility] CHEMISTRY B/C Ratio 8 6 - 25 05/24/2012 Normal [facility] CHEMISTRY AGAP 11.9 meq/L 10.0 - 20.0 05/24/2012 Normal [facility] CHEMISTRY A/G Ratio 1.4 0.7 - 1.6 05/24/2012 Normal [facility] CHEMISTRY Globulin 2.8 g/dL 2.0 - 4.0 05/24/2012 Normal [facility] CHEMISTRY eGFR 120 mL/min/1.73m2 05/24/2012 NA 1Result Comment: The eGFR is calculated using the CKD-EPI formula. In most young, healthy individuals the eGFR will be >90 mL/min/1.73m2. The eGFR declines with age. An eGFR of 60-89 may be normal in some populations, particularly the elderly, for whom the CKD-EPI formula has not been extensively validated. Use of the eGFR is not recommended in the following populations: Individuals with unstable creatinine concentrations, including patients and those with serious co-morbid conditions. Patients with extremes in muscle mass or diet. The data above are obtained from the National Kidney Disease Education Program (NKDEP) which additionally recommends that when the eGFR is used in patients with extremes of body mass index for purposes of drug dosing, the eGFR should be multiplied by the estimated BMI. [facility] CHEMISTRY Calcium Lvl 8.8 mg/dL 8.5 - 10.5 05/24/2012 Normal [facility] CHEMISTRY Albumin Lvl 4.0 g/dL 3.5 - 5.0 05/24/2012 Normal [facility] CHEMISTRY CO2 27 meq/L 24 - 32 05/24/2012 Normal [facility] CHEMISTRY Chloride Lvl 106 meq/L 95 - 109 05/24/2012 Normal [facility] CHEMISTRY Potassium Lvl 3.9 meq/L 3.5 - 5.1 05/24/2012 Normal [facility] CHEMISTRY Sodium Lvl 141 meq/L 135 - 145 05/24/2012 Normal [facility] CHEMISTRY Creatinine Lvl 0.6 mg/dL 0.5 - 1.4 05/24/2012 Normal [facility] CHEMISTRY BUN 5 mg/dL 7 - 22 05/24/2012 LOW [facility] CHEMISTRY Glucose Lvl 90 mg/dL 70 - 99 05/24/2012 Normal 2Interpretive Data: Adult reference range values reflect the clinical guidelines of the [place] [employer]. [facility] CHEMISTRY Alk Phos 70 unit/L 39 - 136 05/24/2012 Normal [facility] CHEMISTRY ALT 15 unit/L 0 - 65 05/24/2012 Normal [facility] CHEMISTRY Bili Total 0.3 mg/dL 0.2 - 1.3 05/24/2012 Normal [facility] CHEMISTRY Total Protein 6.8 g/dL 6.4 - 8.4 05/24/2012 Normal [facility] CHEMISTRY AST 11 unit/L 0 - 37 05/24/2012 Normal [facility] HEMATOLOGY Basophils # 0.1 K/CMM 0.0 - 0.2 05/24/2012 Normal [facility] HEMATOLOGY Segs-Bands # 3.6 K/CMM 1.5 - 8.1 05/24/2012 Normal [facility] HEMATOLOGY Basophils 1.8 % 0.0 - 1.0 05/24/2012 HI [facility] HEMATOLOGY Monocytes # 0.4 K/CMM 0.0 - 0.8 05/24/2012 Normal [facility] HEMATOLOGY Eosinophils # 0.2 K/CMM 0.0 - 0.5 05/24/2012 Normal [facility] HEMATOLOGY Lymphocytes # 2.2 K/CMM 1.0 - 5.5 05/24/2012 Normal [facility] HEMATOLOGY Monocytes 6.3 % 2.0 - 12.0 05/24/2012 Normal [facility] HEMATOLOGY Eosinophils 3.8 % 0.0 - 4.0 05/24/2012 Normal [facility] HEMATOLOGY Lymphocytes 33.3 % 20.0 - 40.0 05/24/2012 Normal [facility] HEMATOLOGY Segs 54.8 % 45.0 - 75.0 05/24/2012 Normal [facility] HEMATOLOGY MPV 9.1 fL 7.4 - 10.4 05/24/2012 Normal [facility] HEMATOLOGY RDW 13.6 % 11.5 - 14.5 05/24/2012 Normal [facility] HEMATOLOGY Platelet 188 K/CMM 133 - 450 05/24/2012 Normal [facility] HEMATOLOGY Hct 45.4 % 36.0 - 48.0 05/24/2012 Normal [facility] HEMATOLOGY MCHC 33.4 g/dL 32.0 - 36.0 05/24/2012 Normal [facility] HEMATOLOGY MCH 31.9 pg 27.0 - 31.0 05/24/2012 HI [facility] HEMATOLOGY Hgb 15.2 g/dL 12.0 - 16.0 05/24/2012 Normal [facility] HEMATOLOGY MCV 95.3 fL 81.0 - 99.0 05/24/2012 Normal [facility] HEMATOLOGY WBC 6.5 K/CMM 3.7 - 10.4 05/24/2012 Normal [facility] HEMATOLOGY RBC 4.76 M/CMM 4.20 - 5.40 05/24/2012 Normal [facility] URINALYSIS UA RBC 0-2 /HPF (05/24/2012 16:40:00) 0 - 2 05/24/2012 Normal [facility] URINALYSIS UA WBC 0-2 /HPF (05/24/2012 16:40:00) None Seen 05/24/2012 Normal [facility] URINALYSIS UA Sq Epi Rare /LPF (05/24/2012 16:40:00) Few 05/24/2012 Normal [facility] URINALYSIS UA Renal Epi 0-2 /LPF *ABN* (05/24/2012 16:40:00) 05/24/2012 ABN [facility] URINALYSIS UA Amorph Camila Occasional /HPF *ABN* (05/24/2012 16:40:00) None Seen 05/24/2012 ABN [facility] URINALYSIS UA Mucus Few /LPF (05/24/2012 16:40:00) None Seen 05/24/2012 Normal [facility] URINALYSIS UA Bacteria None Seen (05/24/2012 16:40:00) None Seen 05/24/2012 Normal [facility] URINALYSIS UA Ketones Negative *NA* (05/24/2012 16:40:00) Negative 05/24/2012 NA [facility] URINALYSIS UA Urobilinogen 0.2 EU/dL 0.1 - 1.0 05/24/2012 Normal [facility] URINALYSIS UA Blood Trace *ABN* (05/24/2012 16:40:00) Negative 05/24/2012 ABN [facility] URINALYSIS UA Bili Negative *NA* (05/24/2012 16:40:00) Negative 05/24/2012 NA [facility] URINALYSIS UA Protein Negative (05/24/2012 16:40:00) Negative 05/24/2012 Normal [facility] URINALYSIS UA Glucose Negative (05/24/2012 16:40:00) Negative 05/24/2012 Normal [facility] URINALYSIS UA Leuk Est Negative (05/24/2012 16:40:00) Negative 05/24/2012 Normal [facility] URINALYSIS UA Nitrite Negative (05/24/2012 16:40:00) Negative 05/24/2012 Normal [facility] URINALYSIS UA pH 7.5 5.0 - 8.0 05/24/2012 Normal [facility] URINALYSIS UA Color Yellow *NA* (05/24/2012 16:40:00) Yellow 05/24/2012 NA [facility] URINALYSIS UA Turbidity Clear (05/24/2012 16:40:00) Clear 05/24/2012 Normal [facility] URINALYSIS UA Spec Grav <=1.005
*NA*
(05/24/2012 16:40:00) <sup> </sup> <=1.030 05/24/2012 NA [facility] Vital Signs Vital Sign Value Date Comments Source Diastolic (mm Hg) 78 11/14/2017 [facility] Height 62 11/14/2017 [facility] Systolic (mm Hg) 118 [facility] Diastolic (mm Hg) 66 11/28/2012 [facility] Systolic (mm Hg) 102 11/28/2012 [facility] Diastolic (mm Hg) 59 11/28/2012 [facility] Systolic (mm Hg) 106 11/28/2012 [facility] Diastolic (mm Hg) 63 11/28/2012 [facility] Systolic (mm Hg) 92 11/28/2012 [facility] Weight 52.273 11/24/2012 [facility] Height 157.48 cm 11/24/2012 [facility] Respitory Rate 20 11/24/2012 [facility] Heart Rate 63 11/24/2012 [facility] Temperature Oral (F) 98.1 F 11/24/2012 [facility] Weight 57.273 07/16/2012 [facility] Height 157.48 cm 07/16/2012 [facility] Height 157.48 cm 07/12/2012 [facility] Weight 57.273 07/12/2012 [facility] Weight 57.273 07/01/2012 [facility] Height 160.02 cm 07/01/2012 [facility] Weight 59.091 05/29/2012 [facility] Height 160.02 cm 05/29/2012 [facility] Height 160.02 cm 05/24/2012 [facility] Weight 61.364 05/24/2012 [facility] Encounters Location Location Details Encounter Type Encounter Number Reason For Visit Attending Provider ADM Date DC Date Status Source [facility] Emergency [id number] ABD PAIN/BACK PAIN NINA GARNER 05/24/2012 05/24/2012 Active [facility] Emergency [id number] PAIN UNDER RIB CAGE IN BACK JUMA DAKOTA 05/29/2012 05/29/2012 Active [facility] Emergency [id number] ARSENIO CALDERONRESHI 07/01/2012 07/01/2012 Active [facility] Emergency [id number] [facility] 07/12/2012 07/12/2012 Active [facility] Emergency [id number] [facility] 07/16/2012 07/16/2012 Active [facility] DS [id number] AUSTIN BRIGGS JR 11/28/2012 11/28/2012 Active [facility] [place] - [facility] - [id number] [facility]: [address] [place] [id number], Ph. [id number] [facility] 11/14/2017 [facility] [place] [facility] - [id number] [facility]: [address] [place] [address], Ph. [id number] [facility] 11/14/2017 [facility] Procedures Procedure Code Date Perfomer Comments Source Tubal ligation [id number] [facility]
--- OUTSIDE RECORDS SUMMARY | 2018-06-13 15:54 | XMS REPORT | CCD ---
Author Author Auto Generated Organization [facility] Address Unknown Phone Unavailable Care Team Providers Care Timers Inspector Name Role Phone Carline Milton Christopher CP Allergies, Adverse Reactions, Alerts Substance Reaction Status NKDA Active Medications Medication Instructions Start Date End Date Status Sodium Chloride 0.9% 25 mL, Route: IV, Start date: 05/24/2012 05/24/2012 Discontinued IV 05/24/12 16:34:00, Duration: 30 day, Stop date: 06/23/12 16:33:00, PRN Line Flush BD Normal Saline 10 mL, Route: IV, Drug Form: INJ, 05/24/2012 05/24/2012 Discontinued Flush PRN, PRN Line Flush, Start date: 05/24/12 16:33:00, Duration: 30 day, Stop date: 06/23/12 16:32:00 morphine Sulfate 2 mg, 1 mL, Route: IVP, Drug form: 05/24/2012 05/24/2012 Completed INJ, ONCE, Dosing Weight 61.364, kg, Priority: STAT, Start date: 05/24/12 16:32:00, Stop date: 05/24/12 16:32:00 ondansetron 4 mg, 2 mL, Route: IVP, Drug form: 05/24/2012 05/24/2012 Completed INJ, ONCE, Dosing Weight 61.364, kg, Priority: STAT, Start date: 05/24/12 16:32:00, Stop date: 05/24/12 16:32:00 Sodium Chloride 0.9% 1,000 mL, Rate: 1,000 ml/hr, Infuse 05/24/2012 05/24/2012 Completed (Bolus) IV 1,000 mL over: 1 hr, Route: IV, kg, Total Volume: 1,000, Priority: STAT, Start date: 05/24/12 16:32:00, Duration: 1 doses or times, Stop date: 05/24/12 17:31:00 Saline Flush 0.9% 5 ml, Route: IVP, Dosing Weight 05/24/2012 05/24/2012 Discontinued 61.364, kg, PRN, PRN Line Flush, Start date: 05/24/12 16:32:00, Duration: 30 day, Stop date: 06/23/12 16:31:00 Robaxin 500 mg oral 500 mg, 1 tab, PO, QID, 12 tab, 05/24/2012 05/27/2012 Ordered tablet Substitution Allowed, TAB tramadol 50 mg oral 1 - 2 tab, PO, Q6H, PRN, 16 tab, 05/24/2012 05/27/2012 Ordered tablet Pain, Substitution Allowed Vital Signs Most recent to oldest [Reference Range]: 1 Height 160.02 cm (05/24/2012 16:07:00) Weight 61.364 kg (05/24/2012 16:07:00) Results URINALYSIS Most recent to oldest [Reference Range]: 1 UA Turbidity [Clear] Clear (05/24/2012 16:40:00) UA Color [Yellow] Yellow *NA* (05/24/2012 16:40:00) UA pH [5.0-8.0] 7.5 (05/24/2012 16:40:00) UA Spec Grav [<=1.030] <=1.005 *NA* (05/24/2012 16:40:00) UA Glucose [Negative] Negative (05/24/2012 16:40:00) UA Blood [Negative] Trace *ABN* (05/24/2012 16:40:00) UA Ketones [Negative] Negative *NA* (05/24/2012 16:40:00) UA Protein [Negative] Negative (05/24/2012 16:40:00) UA Urobilinogen [0.1-1.0 EU/dL] 0.2 EU/dL (05/24/2012 16:40:00) UA Bili [Negative] Negative *NA* (05/24/2012 16:40:00) UA Leuk Est [Negative] Negative (05/24/2012 16:40:00) UA Nitrite [Negative] Negative (05/24/2012 16:40:00) UA WBC [None Seen /HPF] 0-2 /HPF (05/24/2012 16:40:00) UA RBC [0-2 /HPF] 0-2 /HPF (05/24/2012 16:40:00) UA Bacteria [None Seen] None Seen (05/24/2012 16:40:00) UA Sq Epi [Few /LPF] Rare /LPF (05/24/2012 16:40:00) UA Amorph Camila [None Seen /HPF] Occasional /HPF *ABN* (05/24/2012 16:40:00) UA Renal Epi 0-2 /LPF *ABN* (05/24/2012 16:40:00) UA Mucus [None Seen /LPF] Few /LPF (05/24/2012 16:40:00) CHEMISTRY Most recent to oldest [Reference Range]: 1 Sodium Lvl [135-145 mEq/L] 141 mEq/L (05/24/2012 16:40:00) Potassium Lvl [3.5-5.1 mEq/L] 3.9 mEq/L (05/24/2012 16:40:00) Chloride Lvl [95-109 mEq/L] 106 mEq/L (05/24/2012 16:40:00) CO2 [24-32 mEq/L] 27 mEq/L (05/24/2012 16:40:00) AGAP [10.0-20.0 mEq/L] 11.9 mEq/L (05/24/2012 16:40:00) Creatinine Lvl [0.5-1.4 mg/dL] 0.6 mg/dL (05/24/2012 16:40:00) eGFR 120 mL/min/1.73m2 1 *NA* (05/24/2012 16:40:00) BUN [7-22 mg/dL] 5 mg/dL *LOW* (05/24/2012 16:40:00) B/C Ratio [6-25] 8 (05/24/2012 16:40:00) Glucose Lvl [70-99 mg/dL] 90 mg/dL 2 (05/24/2012 16:40:00) Total Protein [6.4-8.4 g/dL] 6.8 g/dL (05/24/2012 16:40:00) Albumin Lvl [3.5-5.0 g/dL] 4.0 g/dL (05/24/2012 16:40:00) Globulin [2.0-4.0 g/dL] 2.8 g/dL (05/24/2012 16:40:00) A/G Ratio [0.7-1.6] 1.4 (05/24/2012 16:40:00) Calcium Lvl [8.5-10.5 mg/dL] 8.8 mg/dL (05/24/2012 16:40:00) ALT [0-65 unit/L] 15 unit/L (05/24/2012 16:40:00) AST [0-37 unit/L] 11 unit/L (05/24/2012:40:00) Alk Phos [39-136 unit/L] 70 unit/L (05/24/2012 16:40:00) Bili Total [0.2-1.3 mg/dL] 0.3 mg/dL (05/24/2012 16:40:00) U Preg [Negative] Negative (05/24/2012 16:40:00) 1Result Comment: The eGFR is calculated using [...] from the National Kidney Disease Education Program ( NKDEP) which additionally recommends that when the eGFR is used in patients with extremes of body mass index for purposes of drug dosing, the eGFR should be mul tiplied by the estimated BMI. 2Interpretive Data: Adult reference range values reflect the clinical guidelines of the [place] Diabetes Association. HEMATOLOGY Most recent to oldest [Reference Range]: 1 WBC [3.7-10.4 K/CMM] 6.5 K/CMM (05/24/2012 16:40:00) RBC [4.20-5.40 M/CMM] 4.76 M/CMM (05/24/2012 16:40:00) Hgb [12.0-16.0 g/dL] 15.2 g/dL (05/24/2012 16:40:00) Hct [36.0-48.0 %] 45.4 % (05/24/2012 16:40:00) MCV [81.0-99.0 fL] 95.3 fL (05/24/2012 16:40:00) MCH [27.0-31.0 pg] 31.9 pg *HI* (05/24/2012 16:40:00) MCHC [32.0-36.0 g/dL] 33.4 g/dL (05/24/2012 16:40:00) RDW [11.5-14.5 %] 13.6 % (05/24/2012 16:40:00) Platelet [133-450 K/CMM] 188 K/CMM (05/24/2012 16:40:00) MPV [7.4-10.4 fL] 9.1 fL (05/24/2012 16:40:00) Segs [45.0-75.0 %] 54.8 % (05/24/2012 16:40:00) Lymphocytes [20.0-40.0 %] 33.3 % (05/24/2012 16:40:00) Monocytes [2.0-12.0 %] 6.3 % (05/24/2012 16:40:00) Eosinophils [0.0-4.0 %] 3.8 % (05/24/2012 16:40:00) Basophils [0.0-1.0 %] 1.8 % *HI* (05/24/2012 16:40:00) Segs-Bands # [1.5-8.1 K/CMM] 3.6 K/CMM (05/24/2012 16:40:00) Lymphocytes # [1.0-5.5 K/CMM] 2.2 K/CMM (05/24/2012 16:40:00) Monocytes # [0.0-0.8 K/CMM] 0.4 K/CMM (05/24/2012 16:40:00) Eosinophils # [0.0-0.5 K/CMM] 0.2 K/CMM (05/24/2012 16:40:00) Basophils # [0.0-0.2 K/CMM] 0.1 K/CMM (05/24/2012 16:40:00) IMMUNOLOGY Most recent to oldest [Reference Range]: 1 CDC-HIV 1/2 Ab [Negative] Negative *NA* (05/24/2012 16:40:39) Source Chlam endocervix *NA* (05/24/2012 17:00:00) Chlam PCR [Negative] Negative (05/24/2012 17:00:00) Source [facility] Endocervix *NA* (05/24/2012 17:00:00) Gonorrhea PCR [Negative] Negative (05/24/2012 17:00:00) Microbiology Reports PROCEDURE:Wet Prep STATUS: Auth (Verified) BODY SITE: COLLECTED DATE/TIME: 05/24/2012 17:00:00 SOURCE: Genital FREE TEXT SOURCE: FINAL REPORTS Final Report Rare WBC's Seen Rare RBC's Seen Few Epithelial Cells Seen No Fungal Elements (Hyphae) Seen No Trichomonas Seen No Clue Cells Seen Occasional Clue Cells Procedures Procedures Date Related Diagnosis Tubal ligation
--- OUTSIDE RECORDS SUMMARY | 2018-06-13 15:55 | XMS REPORT | CCD ---
Author Author Auto Generated Organization [facility] Address Unknown Phone Unavailable Care Team Providers Care Risk Mgr Name Role Phone Ernestine Hooper CP Allergies, Adverse Reactions, Alerts Substance Reaction Status NKDA Active Problem List Condition Effective Dates Status Renal calculus Resolved Tubal ligation Resolved Medications Medication Instructions Start Date End Date Status Klonopin Substitution Allowed 07/01/2012 Ordered Zoloft Substitution Allowed 07/01/2012 Ordered Motrin 600 mg oral 600 mg, 1 tab, PO, Q6H, PRN, take 07/01/2012 Ordered tablet with food, 30 tab, Pain, Substitution Allowed take with food Sodium Chloride 0.9% 25 mL, Route: IV, Start date: 07/01/2012 07/01/2012 Discontinued IV 07/01/12 12:41:00, Duration: 30 day, Stop date: 07/31/12 12:40:00, PRN Line Flush BD Normal Saline 10 mL, Route: IV, Drug Form: INJ, 07/01/2012 07/01/2012 Discontinued Flush PRN, PRN Line Flush, Start date: 07/01/12 12:41:00, Duration: 30 day, Stop date: 07/31/12 12:40:00 Benadryl 50 mg, 1 mL, Route: IVP, Drug form: 07/01/2012 07/01/2012 Completed INJ, ONCE, Dosing Weight 57.273, kg, Priority: STAT, Start date: 07/01/12 12:38:00, Stop date: 07/01/12 12:38:00 Reglan 10 mg, 2 mL, Route: IVP, Drug form: 07/01/2012 07/01/2012 Completed INJ, ONCE, Dosing Weight 57.273, kg, Priority: STAT, Start date: 07/01/12 12:38:00, Stop date: 07/01/12 12:38:00 Sodium Chloride 0.9% 1,000 mL, Rate: 1,000 ml/hr, Infuse 07/01/2012 07/01/2012 Completed (Bolus) IV 1,000 mL over: 1 hr, Route: IV, kg, Total Volume: 1,000, Priority: STAT, Start date: 07/01/12 12:37:00, Duration: 1 doses or times, Stop date: 07/01/12 13:36:00, Bolus Dose Bolus Dose Vital Signs Most recent to oldest [Reference Range]: 1 Height 160.02 cm (07/01/2012 12:02:00) Weight 57.273 kg (07/01/2012 12:02:00) Results CHEMISTRY Most recent to oldest [Reference Range]: 1 Sodium Lvl [135-145 mEq/L] 132 mEq/L *LOW* (07/01/2012 12:40:00) Potassium Lvl [3.5-5.1 mEq/L] 3.6 mEq/L (07/01/2012 12:40:00) Chloride Lvl [95-109 mEq/L] 98 mEq/L (07/01/2012 12:40:00) CO2 [24-32 mEq/L] 26 mEq/L (07/01/2012 12:40:00) AGAP [10.0-20.0 mEq/L] 11.6 mEq/L (07/01/2012 12:40:00) Creatinine Lvl [0.5-1.4 mg/dL] 0.7 mg/dL (07/01/2012 12:40:00) eGFR 114 mL/min/1.73m2 1 *NA* (07/01/2012 12:40:00) BUN [7-22 mg/dL] 5 mg/dL *LOW* (07/01/2012 12:40:00) B/C Ratio [6-25] 7 (07/01/2012 12:40:00) Glucose Lvl [70-99 mg/dL] 91 mg/dL 2 (07/01/2012 12:40:00) Total Protein [6.4-8.4 g/dL] 6.9 g/dL (07/01/2012 12:40:00) Albumin Lvl [3.5-5.0 g/dL] 4.1 g/dL (07/01/2012 12:40:00) Globulin [2.0-4.0 g/dL] 2.8 g/dL (07/01/2012:40:00) A/G Ratio [0.7-1.6] 1.5 (07/01/2012:40:00) Calcium Lvl [8.5-10.5 mg/dL] 8.7 mg/dL (07/01/2012 12:40:00) ALT [0-65 unit/L] 16 unit/L (07/01/2012:40:00) AST [0-37 unit/L] 13 unit/L (07/01/2012:40:00) Alk Phos [39-136 unit/L] 62 unit/L (07/01/2012:40:00) Bili Total [0.2-1.3 mg/dL] 0.6 mg/dL (07/01/2012:40:00) S Preg [Negative] Negative *NA* (07/01/2012:40:00) 1Result Comment: The eGFR is calculated using [...] values reflect the clinical guidelines of the [place] [employer]. HEMATOLOGY Most recent to oldest [Reference Range]: 1 WBC [3.7-10.4 K/CMM] 6.4 K/CMM (07/01/2012 12:40:00) RBC [4.20-5.40 M/CMM] 4.69 M/CMM (07/01/2012 12:40:00) Hgb [12.0-16.0 g/dL] 15.1 g/dL (07/01/2012 12:40:00) Hct [36.0-48.0 %] 44.6 % (07/01/2012 12:40:00) MCV [81.0-99.0 fL] 95.0 fL (07/01/2012 12:40:00) MCH [27.0-31.0 pg] 32.1 pg *HI* (07/01/2012:40:00) MCHC [32.0-36.0 g/dL] 33.8 g/dL (07/01/2012 12:40:00) RDW [11.5-14.5 %] 14.1 % (07/01/2012:40:00) Platelet [133-450 K/CMM] 162 K/CMM (07/01/2012 12:40:00) MPV [7.4-10.4 fL] 8.5 fL (07/01/2012:40:00) Segs [45.0-75.0 %] 63.5 % (07/01/2012 12:40:00) Lymphocytes [20.0-40.0 %] 29.1 % (07/01/2012 12:40:00) Monocytes [2.0-12.0 %] 5.2 % (07/01/2012 12:40:00) Eosinophils [0.0-4.0 %] 1.5 % (07/01/2012 12:40:00) Basophils [0.0-1.0 %] 0.7 % (07/01/2012 12:40:00) Segs-Bands # [1.5-8.1 K/CMM] 4.1 K/CMM (07/01/2012 12:40:00) Lymphocytes # [1.0-5.5 K/CMM] 1.9 K/CMM (07/01/2012 12:40:00) Monocytes # [0.0-0.8 K/CMM] 0.3 K/CMM (07/01/2012 12:40:00) Eosinophils # [0.0-0.5 K/CMM] 0.1 K/CMM (07/01/2012 12:40:00) Basophils # [0.0-0.2 K/CMM] 0.0 K/CMM (07/01/2012 12:40:00) PT [12.0-14.7 seconds] 14.2 seconds (07/01/2012 12:40:00) INR [0.85-1.17] 1.08 3 (07/01/2012 12:40:00) PTT [22.9-35.8 seconds] 33.5 seconds 4 (07/01/2012 12:40:00) 3Interpretive Data: RECOMMENDED RANGES FOR PROTIME INR: 2.0-3.0 for most medical and surgical thromboembolic states. 2.5-3.5 for artificial heart valves and recurrent embolism. INR SHOULD BE USED ONLY FOR PATIENTS ON STABLE ANTICOAGULANT THERAPY. 4Interpretive Data: Heparin Therapeutic Range: 57 - 92 Seconds
--- OUTSIDE RECORDS SUMMARY | 2018-06-13 15:55 | XMS REPORT | CCD ---
Author Author Auto Generated Organization [facility] Address Unknown Phone Unavailable Care Team Providers Care Hair Worker Name Role Phone Duy Farris CP Allergies, Adverse Reactions, Alerts Substance Reaction Status morphine headache Active Problem List Condition Effective Dates Status Renal calculus Resolved Tubal ligation Resolved Medications Medication Instructions Start Date End Date Status Percocet 5/325 oral Substitution Allowed, Maintenance 07/16/2012 Ordered tablet meloxicam Substitution Allowed 07/16/2012 Ordered Flexeril Substitution Allowed 07/16/2012 Ordered Geodon 20 mg, Route: IM, ONCE, Dosing 07/16/2012 07/16/2012 Completed Weight 57.273, kg, Priority: STAT, Start date: 07/16/12 10:29:00, Stop date: 07/16/12 10:29:00 Ativan 2 mg, Route: IVP, ONCE, Dosing 07/16/2012 07/16/2012 Completed Weight 57.273, kg, Priority: STAT, Start date: 07/16/12 10:29:00, Stop date: 07/16/12 10:29:00 dexamethasone 10 mg, Route: IVP, ONCE, Dosing 07/16/2012 07/16/2012 Completed Weight 57.273, kg, Priority: STAT, Start date: 07/16/12 10:29:00, Stop date: 07/16/12 10:29:00 Geodon 20 mg oral 20 mg, 1 cap, PO, BID, 60 cap, 07/16/2012 Ordered capsule Substitution Allowed, CAP Ativan 1 mg oral 1 mg, 1 tab, PO, Q6H, PRN, 12 tab, 07/16/2012 Ordered tablet Anxiety, Substitution Allowed predniSONE 50 mg 50 mg, 1 tab, PO, Daily, 7 tab, 07/16/2012 07/23/2012 Ordered oral tablet Substitution Allowed, TAB Vital Signs Most recent to oldest [Reference Range]: 1 Height 157.48 cm (07/16/2012 10:12:00) Weight 57.273 kg (07/16/2012 10:12:00) Results CHEMISTRY Most recent to oldest [Reference Range]: 1 Sodium Lvl [135-145 mEq/L] 141 mEq/L (07/16/2012:40:00) Potassium Lvl [3.5-5.1 mEq/L] 3.9 mEq/L (07/16/2012:40:00) Chloride Lvl [95-109 mEq/L] 107 mEq/L (07/16/2012:40:00) CO2 [24-32 mEq/L] 26 mEq/L (07/16/2012:40:00) AGAP [10.0-20.0 mEq/L] 11.9 mEq/L (07/16/2012:40:00) Creatinine Lvl [0.5-1.4 mg/dL] 0.8 mg/dL (07/16/2012:40:00) eGFR 97 mL/min/1.73m2 1 *NA* (07/16/2012:40:00) BUN [7-22 mg/dL] 5 mg/dL *LOW* (07/16/2012:40:00) B/C Ratio [6-25] 6 (07/16/2012:40:00) Glucose Lvl [70-99 mg/dL] 90 mg/dL 2 (07/16/2012 10:40:00) Total Protein [6.4-8.4 g/dL] 6.9 g/dL (07/16/2012:40:00) Albumin Lvl [3.5-5.0 g/dL] 4.1 g/dL (07/16/2012:40:00) Globulin [2.0-4.0 g/dL] 2.8 g/dL (07/16/2012:40:00) A/G Ratio [0.7-1.6] 1.5 (07/16/2012:40:00) Calcium Lvl [8.5-10.5 mg/dL] 9.1 mg/dL (07/16/2012:40:00) ALT [0-65 unit/L] 15 unit/L (07/16/2012:40:00) AST [0-37 unit/L] 9 unit/L (07/16/2012:40:00) Alk Phos [39-136 unit/L] 57 unit/L (07/16/2012:40:00) Bili Total [0.2-1.3 mg/dL] 0.3 mg/dL (07/16/2012:40:) S Preg [Negative] Negative *NA* (07/16/2012) 1Result Comment: The eGFR is calculated using [...] values reflect the clinical guidelines of the [place] [employer]. HEMATOLOGY Most recent to oldest [Reference Range]: 1 WBC [3.7-10.4 K/CMM] 6.0 K/CMM (07/16/2012:40:) RBC [4.20-5.40 M/CMM] 4.64 M/CMM (07/16/2012) Hgb [12.0-16.0 g/dL] 14.9 g/dL (07/16/2012) Hct [36.0-48.0 %] 44.6 % (07/16/2012) MCV [81.0-99.0 fL] 96.1 fL (07/16/2012:) MCH [27.0-31.0 pg] 32.1 pg *HI* (07/16/2012) MCHC [32.0-36.0 g/dL] 33.4 g/dL (07/16/2012 10:40:00) RDW [11.5-14.5 %] 14.6 % *HI* (07/16/2012:40:00) Platelet [133-450 K/CMM] 196 K/CMM (07/16/2012:40:00) MPV [7.4-10.4 fL] 8.1 fL (07/16/2012:40:00) Segs [45.0-75.0 %] 65.2 % (07/16/2012:40:00) Lymphocytes [20.0-40.0 %] 28.6 % (07/16/2012:40:00) Monocytes [2.0-12.0 %] 3.9 % (07/16/2012:40:00) Eosinophils [0.0-4.0 %] 1.9 % (07/16/2012:40:00) Basophils [0.0-1.0 %] 0.4 % (07/16/2012:40:00) Segs-Bands # [1.5-8.1 K/CMM] 3.9 K/CMM (07/16/2012:40:00) Lymphocytes # [1.0-5.5 K/CMM] 1.7 K/CMM (07/16/2012:40:00) Monocytes # [0.0-0.8 K/CMM] 0.2 K/CMM (07/16/2012:40:00) Eosinophils # [0.0-0.5 K/CMM] 0.1 K/CMM (07/16/2012:40:00) Basophils # [0.0-0.2 K/CMM] 0.0 K/CMM (07/16/2012:40:00)
--- OUTSIDE RECORDS SUMMARY | 2018-06-13 15:55 | XMS REPORT | CCD ---
Author Author Auto Generated Organization [facility] Address Unknown Phone Unavailable Care Team Providers Care Oracle Engineer Name Role Phone Luke Moreira CP Allergies, Adverse Reactions, Alerts Substance Reaction Status NKDA Active Problem List Condition Effective Dates Status Renal calculus Resolved Tubal ligation Resolved Medications Medication Instructions Start Date End Date Status Zofran ODT 4 mg oral 4 mg, 1 tab, PO, BID, PRN, Dissolve 05/29/2012 Ordered tablet, tab under tongue, 10 tab, Nausea disintegrating and Vomiting, Substitution Allowed Dissolve tab under tongue Naprosyn 375 mg oral 375 mg, 1 tab, PO, BID, PRN, 20 05/29/2012 Ordered tablet tab, Pain, Substitution Allowed Blythe 5/325 oral 1-2 tab, PO, Q4-6H, PRN, 15 tab, 05/29/2012 06/03/2012 Ordered tablet Pain, Substitution Allowed, Maintenance Pyridium 100 mg oral 100 mg, 1 tab, PO, TID, 21 tab, 05/29/2012 06/05/2012 Ordered tablet Substitution Allowed, TAB Sodium Chloride 0.9% 25 mL, Route: IV, Start date: 05/29/2012 05/29/2012 Discontinued IV 05/29/12 13:13:00, Duration: 30 day, Stop date: 06/28/12 13:12:00, PRN Line Flush BD Normal Saline 10 mL, Route: IV, Drug Form: INJ, 05/29/2012 05/29/2012 Discontinued Flush PRN, PRN Line Flush, Start date: 05/29/12 13:12:00, Duration: 30 day, Stop date: 06/28/12 13:11:00 ketorolac 30 mg, 1 mL, Route: IVP, Drug form: 05/29/2012 05/29/2012 Completed INJ, ONCE, Dosing Weight 59.091, kg, Priority: STAT, Start date: 05/29/12 13:11:00, Stop date: 05/29/12 13:11:00 Vital Signs Most recent to oldest [Reference Range]: 1 Height 160.02 cm (05/29/2012 10:35:00) Weight 59.091 kg (05/29/2012 10:35:00) Results URINALYSIS Most recent to oldest [Reference Range]: 1 UA Turbidity [Clear] Clear (05/29/2012 12:10:42) UA Color [Yellow] Yellow *NA* (05/29/2012 12:10:42) UA pH [5.0-8.0] 7.0 (05/29/2012 12:10:42) UA Spec Grav [<=1.030] 1.010 (05/29/2012 12:10:42) UA Glucose [Negative] Negative (05/29/2012 12:10:42) UA Blood [Negative] Trace *ABN* (05/29/2012 12:10:42) UA Ketones [Negative] Negative *NA* (05/29/2012 12:10:42) UA Protein [Negative] Negative (05/29/2012 12:10:42) UA Urobilinogen [0.1-1.0 EU/dL] 0.2 EU/dL (05/29/2012 12:10:42) UA Bili [Negative] Negative *NA* (05/29/2012 12:10:42) UA Leuk Est [Negative] Negative (05/29/2012 12:10:42) UA Nitrite [Negative] Negative (05/29/2012 12:10:42) UA WBC [None Seen /HPF] 0-2 /HPF (05/29/2012 12:10:42) UA RBC [0-2 /HPF] 0-2 /HPF (05/29/2012 12:10:42) UA Bacteria [None Seen /HPF] Occasional /HPF (05/29/2012 12:10:42) UA Sq Epi [Few /LPF] Moderate /LPF *ABN* (05/29/2012 12:10:42) CHEMISTRY Most recent to oldest [Reference Range]: 1 Sodium Lvl [135-145 mEq/L] 138 mEq/L (05/29/2012 13:02:00) Potassium Lvl [3.5-5.1 mEq/L] 4.1 mEq/L (05/29/2012:02:00) Chloride Lvl [95-109 mEq/L] 107 mEq/L (05/29/2012:02:00) CO2 [24-32 mEq/L] 23 mEq/L *LOW* (05/29/2012:02:00) AGAP [10.0-20.0 mEq/L] 12.1 mEq/L (05/29/2012:02:00) Creatinine Lvl [0.5-1.4 mg/dL] 0.7 mg/dL (05/29/2012:02:00) eGFR 114 mL/min/1.73m2 1 *NA* (05/29/2012::00) BUN [7-22 mg/dL] 5 mg/dL *LOW* (05/29/2012:02:00) B/C Ratio [6-25] 7 (05/29/2012:02:00) Glucose Lvl [70-99 mg/dL] 81 mg/dL 2 (05/29/2012:02:00) Total Protein [6.4-8.4 g/dL] 7.0 g/dL (05/29/2012:02:00) Albumin Lvl [3.5-5.0 g/dL] 4.2 g/dL (05/29/2012:02:00) Globulin [2.0-4.0 g/dL] 2.8 g/dL (05/29/2012:02:00) A/G Ratio [0.7-1.6] 1.5 (05/29/2012:02:00) Calcium Lvl [8.5-10.5 mg/dL] 9.0 mg/dL (05/29/2012:02:00) ALT [0-65 unit/L] 15 unit/L (05/29/2012:02:00) AST [0-37 unit/L] 12 unit/L (05/29/2012:02:00) Alk Phos [39-136 unit/L] 65 unit/L (05/29/2012:02:00) Bili Total [0.2-1.3 mg/dL] 0.5 mg/dL (05/29/2012:02:00) 1Result Comment: The eGFR is calculated using [...] values reflect the clinical guidelines of the [place] [employer]. HEMATOLOGY Most recent to oldest [Reference Range]: 1 WBC [3.7-10.4 K/CMM] 8.7 K/CMM (05/29/2012::) RBC [4.20-5.40 M/CMM] 4.94 M/CMM (05/29/2012::00) Hgb [12.0-16.0 g/dL] 15.6 g/dL (05/29/2012) Hct [36.0-48.0 %] 47.5 % (05/29/2012) MCV [81.0-99.0 fL] 96.2 fL (05/29/2012:00) MCH [27.0-31.0 pg] 31.7 pg *HI* (05/29/201200) MCHC [32.0-36.0 g/dL] 32.9 g/dL (05/29/2012) RDW [11.5-14.5 %] 14.3 % (05/29/2012::) Platelet [133-450 K/CMM] 203 K/CMM (05/29/2012:02:00) MPV [7.4-10.4 fL] 8.9 fL (05/29/2012 13:02:00) Segs [45.0-75.0 %] 63.6 % (05/29/2012:02:00) Lymphocytes [20.0-40.0 %] 27.2 % (05/29/2012:02:00) Monocytes [2.0-12.0 %] 5.4 % (05/29/2012:02:00) Eosinophils [0.0-4.0 %] 2.8 % (05/29/2012:02:00) Basophils [0.0-1.0 %] 1.0 % (05/29/2012:02:00) Segs-Bands # [1.5-8.1 K/CMM] 5.5 K/CMM (05/29/2012:02:00) Lymphocytes # [1.0-5.5 K/CMM] 2.4 K/CMM (05/29/2012:02:00) Monocytes # [0.0-0.8 K/CMM] 0.5 K/CMM (05/29/2012:02:00) Eosinophils # [0.0-0.5 K/CMM] 0.2 K/CMM (05/29/2012:02:00) Basophils # [0.0-0.2 K/CMM] 0.1 K/CMM (05/29/2012:02:00) D-Dimer 0.38 ug/mL FEU 3 *NA* (05/29/2012 13:02:00) 3Interpretive Data: In DIC, quantitative D-Dimer is generally greater than 0.66 ug/mL FEU. Values of quantitative D-Dimer less than 0.40 ug/mL FEU have been reported to be associated with a low probability of deep vein thrombosis/pulmonary embolism. This test alone should not be used to rule out DVT/PE.
--- OUTSIDE RECORDS SUMMARY | 2018-06-13 15:55 | XMS REPORT | CCD ---
Author Author Auto Generated Organization [facility] Address Unknown Phone Unavailable Care Team Providers Care Hose Handler Name Role Phone Duy Farris CP Allergies, Adverse Reactions, Alerts Substance Reaction Status morphine headache Active Problem List Condition Effective Dates Status Renal calculus Resolved Tubal ligation Resolved Medications Medication Instructions Start Date End Date Status Ativan 1 mg oral 1 mg, 1 tab, PO, Q6H, PRN, 12 tab, 07/12/2012 Ordered tablet Anxiety, Substitution Allowed predniSONE 50 mg 50 mg, 1 tab, PO, Daily, 7 tab, 07/12/2012 07/19/2012 Ordered oral tablet Substitution Allowed, TAB dexamethasone 10 mg, Route: IVP, ONCE, Dosing 07/12/2012 07/12/2012 Completed Weight 57.273, kg, Priority: STAT, Start date: 07/12/12 10:45:00, Stop date: 07/12/12 10:45:00 dexamethasone 10 mg, 1 mL, Route: IVP, Drug form: 07/12/2012 07/12/2012 Completed INJ, ONCE, Dosing Weight 57.273, kg, Priority: STAT, Start date: 07/12/12 10:18:00, Stop date: 07/12/12 10:18:00 Ativan 2 mg, 1 mL, Route: IVP, Drug form: 07/12/2012 07/12/2012 Completed INJ, ONCE, Dosing Weight 57.273, kg, Priority: STAT, Start date: 07/12/12 10:18:00, Stop date: 07/12/12 10:18:00 Sodium Chloride 0.9% 25 mL, Route: IV, Start date: 07/12/2012 07/12/2012 Discontinued IV 07/12/12 10:23:00, Duration: 30 day, Stop date: 08/11/12 10:22:00, PRN Line Flush BD Normal Saline 10 mL, Route: IV, Drug Form: INJ, 07/12/2012 07/12/2012 Discontinued Flush PRN, PRN Line Flush, Start date: 07/12/12 10:23:00, Duration: 30 day, Stop date: 08/11/12 10:22:00 Vital Signs Most recent to oldest [Reference Range]: 1 Height 157.48 cm (07/12/2012 09:55:00) Weight 57.273 kg (07/12/2012 09:55:00)
--- OUTSIDE RECORDS SUMMARY | 2018-06-13 15:55 | XMS REPORT | CCD ---
Author Author Auto Generated Organization [facility] Address Unknown Phone Unavailable Care Team Providers Care Dental Floss Packer Name Role Phone Toni Gold Jr RP Allergies, Adverse Reactions, Alerts Substance Reaction Status morphine headache Active Problem List Condition Effective Dates Status Renal calculus Resolved Tubal ligation Resolved Medications Medication Instructions Start Date End Date Status [place] [address] oral 1 tab, Route: PO, Dosing Weight 11/28/2012 11/28/2012 Completed tablet 52.273, kg, ONCE, Start date: 11/28/12 9:11:00, Stop date: 11/28/12 9:11:00 dexamethasone 8 mg, Route: IV, ONCE, Dosing 11/28/2012 11/28/2012 Completed Weight 52.273, kg, Start date: 11/28/12 7:07:00, Stop date: 11/28/12 7:07:00 Ancef 1 gm, Route: IVPB, ONCE, Dosing 11/28/2012 11/28/2012 Completed Weight 52.273, kg, Start date: 11/28/12 7:07:00, Stop date: 11/28/12 7:07:00 Multiple Vitamins 1 tab, PO, Daily, 30 tab, 11/24/2012 Ordered oral tablet Substitution Allowed, Maintenance, TAB metoprolol 1 mg, Route: IVP, Q5Min, Dosing 11/28/2012 11/28/2012 Discontinued Weight 52.273, kg, PRN Elevated BP, Start date: 11/28/12 8:16:00, Duration: 5 doses or times, Stop date: Limited # of times hydromorphone 0.5 mg, Route: IVP, Q5Min, Dosing 11/28/2012 11/28/2012 Discontinued Weight 52.273, kg, PRN Pain Score 7-10, Start date: 11/28/12 8:16:00, Duration: 5 doses or times, Stop date: Limited # of times fentanyl 25 microgram, Route: IVP, Q5Min, 11/28/2012 11/28/2012 Completed Dosing Weight 52.273, kg, PRN Pain Score 4-6, Start date: 11/28/12 8:16:00, Duration: 4 doses or times, Stop date: Limited # of times ibuprofen 600 mg, Route: PO, Drug form: TAB, 11/28/2012 11/28/2012 Discontinued Q6H, Dosing Weight 52.273, kg, PRN Pain Score 1-3, Start date: 11/28/12 8:16:00, Duration: 30 day, Stop date: 12/28/12 8:15:00 morphine Sulfate 2 mg, Route: IVP, Q5Min, Dosing 11/28/2012 11/28/2012 Discontinued Weight 52.273, kg, PRN Pain Score 4-6, Start date: 11/28/12 8:16:00, Duration: 5 doses or times, Stop date: Limited # of times ketorolac 30 mg, Route: IVP, ONCE, Dosing 11/28/2012 11/28/2012 Discontinued Weight 52.273, kg, Start date: 11/28/12 8:16:00, Duration: 1 doses or times, Stop date: 11/28/12 8:16:00 flumazenil 0.2 mg, Route: IVP, PRN, Dosing 11/28/2012 11/28/2012 Discontinued Weight 52.273, kg, PRN Benzodiazepine Reversal, Initial dose, Start date: 11/28/12 8:16:00, Duration: 30 day, Stop date: 12/28/12 8:15:00 ondansetron 4 mg, Route: IVP, ONCE, Dosing 11/28/2012 11/28/2012 Completed Weight 52.273, kg, PRN Nausea & Vomiting, Start date: 11/28/12 8:16:00 naloxone 0.04 mg, Route: IVP, Q2MIN, Dosing 11/28/2012 11/28/2012 Discontinued Weight 52.273, kg, PRN Narcotic Reversal, Start date: 11/28/12 8:16:00, Duration: 8 doses or times, Stop date: Limited # of times hydrALAZINE 5 mg, Route: IVP, Q5Min, Dosing 11/28/2012 11/28/2012 Discontinued Weight 52.273, kg, PRN Elevated BP, Start date: 11/28/12 8:16:00, Duration: 4 doses or times, Stop date: Limited # of times Lactated Ringers 1,000 mL, Rate: 25 ml/hr, Infuse 11/28/2012 11/28/2012 Discontinued Injection IV 1,000 over: 40 hr, Route: IV, Dosing mL Weight 52.273 kg, Total Volume: 1,000, Start date: 11/28/12 6:17:00, Duration: 30 day, Stop date: 12/28/12 6:16:00 DepoMedrol 80 mg, Route: IM, ONCE, Dosing 11/28/2012 11/28/2012 Completed Weight 52.273, kg, Start date: 11/28/12 8:02:00, Stop date: 11/28/12 8:02:00 Vital Signs Most recent to oldest [Reference Range]: 1 2 3 Height 157.48 cm (11/24/2012 15:42:00) Temperature Oral [96.4-99.1 DegF] 98.1 DegF (11/24/2012 15:30:00) Systolic Blood Pressure [90-140 mmHg] 102 mmHg (11/28/2012 09:45:00) 106 mmHg (11/28/2012 09:30:00) 92 mmHg (11/28/2012 09:15:00) Diastolic Blood Pressure [60-90 mmHg] 66 mmHg (11/28/2012 09:45:00) 59 mmHg *LOW* (11/28/2012 09:30:00) 63 mmHg (11/28/2012 09:15:00) Respiratory Rate [14-20 BRMIN] 20 BRMIN (11/24/2012 15:30:00) Peripheral Pulse Rate [60-100 bpm] 63 bpm (11/24/2012 15:30:00) Weight 52.273 kg (11/24/2012 15:42:00) Results CHEMISTRY Most recent to oldest [Reference Range]: 1 U Preg [Negative] Negative (11/28/2012 05:30:00)
== END | disposition home or self-care (01) ==
LOC: OR 08:59
PROVIDERS: ATTEND Specialist
DX: N30.20 Other chronic cystitis without hematuria (principal); N32.81 Overactive bladder; N39.46 Mixed incontinence; Z87.442 Personal history of urinary calculi; N81.10 Cystocele, unspecified; D41.4 Neoplasm of uncertain behavior of bladder
CPT/HCPCS: 52005; 74420; C1758; J1100; J1885; J1956; J2001; J2250; J2270; J2405; J2704; Q9967